=== PATIENT | female | born 1970 | race African-American/Black ===

== ENCOUNTER 2018-01-18 09:35 | Emergency (ER) | payer SELFPAY ==
[2018-01-18] MEDS ORDERED: MORPHINE 4 MG/ML SYR ONE (10:25)
[2018-01-18] MEDS ORDERED: ONDANSETRON 4 MG/2 ML VIAL ONE (10:25)
[2018-01-18] MEDS ORDERED: NA CHLORIDE 0.9% 1,000 ML ONE (10:25)
[2018-01-18 10:55] LABS: Absolute Lymphocytes (CBC) 2.2 K/uL (0.7-4.9); Absolute Monocytes 0.5 K/uL (0.1-1.3); Absolute Neutrophil 2.2 K/uL (1.8-8.0); Eosinophils % 2.9 % (0-4.4); Hematocrit 38.5 % (36.0-45.0); Lymphocytes % 42.4 % (15.3-44.8); MCH 32.4 pg (27.0-35.0); MCV 93.2 fL (80-100); MPV 7.8 fL (7.6-11.3); Monocytes % 10.3 % (3.3-12.3); RBC Red Blood Cell Count 4.13 M/uL (3.86-4.86)
[2018-01-18 11:00] LABS: Urine Bacteria 20-50 /HPF (<20); Urine RBC <5 /HPF (NONE SEEN)
[2018-01-18 11:02] LABS: Urine Culture Reflex Order NOT NEEDED; Urine Mucus HEAVY /HPF (NONE SEEN)
[2018-01-18 11:09] LABS: ALT/SGPT 19 U/L (12-78); AST/SGOT 18 U/L (15-37); Albumin 3.6 g/dL (3.4-5.0); Alkaline Phosphatase 83 U/L (45-117); Amylase Level 32 U/L (25-115); BUN Blood Urea Nitrogen 5 mg/dL (7-18); Bicarbonate 27 mmol/L (21-32); Bilirubin Direct < 0.1 mg/dL (0-0.2); Bilirubin Total 0.3 mg/dL (0.2-1.0); Glucose Level 82 mg/dL (74-106); Lipase 122 U/L (73-393); Potassium 3.5 mmol/L (3.5-5.1); Protein, Total 7.4 g/dL (6.4-8.2); Sodium Level 144 mmol/L (136-145)
--- NOTE | 2018-01-18 11:19 | RAD REPORT ---
EXAM DESCRIPTION: CT - Stone Protocol - 01/18/2018 11:08 am CLINICAL HISTORY: Flank pain. left flank pain COMPARISON: No comparisons TECHNIQUE: Axial images were obtained without oral or IV contrast. Lack of contrast limits solid org an and vascular assessment. The [id number] spans the entirety of the system partially obscuring uppermost abdomen and lung bases. Coronal reformatted images were obtained and reviewed. All CT scans are performed using dose optimization technique as appropriate and may include automated exposure control or mA/KV adjustment according to patient size. FINDINGS: The lower lung sierra are clear. Imaged portions of the liver and spleen show no suspicious findings on non-contrast imaging. The panc reas and adrenal glands are normal. No pathologic lymphadenopathy in the abdomen or pelvis. No urinary tract stones or obstructive uropathy. No bowel obstruction, free air, free fluid or abscess. Normal appendix noted. No significant bony abnormality. IMPRESSION: No urinary tract stones or obstructive uropathy.
--- NOTE | 2018-01-18 11:33 | EDPHYS ---
Physician Documentation [facility] Name: Kelsie Hernandez Age: 47 yrs Sex: Female : 1970 Arrival Date: 01/18/2018 Time: 09:36 Bed 17 Private MD: None, None ED Physician Talat Beth HPI: 01/18 10:13 This 47 yrs old Black Female presents to ER via Ambulatory with complaints of Flank jmm Pain. 10:13 The patient complains of pain in the left flank. The pain radiates to the left upper jmm quadrant and left lower quadrant. Onset: The symptoms/episode began/occurred acutely, 1 day(s) ago. Modifying factors: The symptoms are alleviated by nothing. the symptoms are aggravated by nothing. Associated signs and symptoms: Pertinent negatives: diarrhea, dysuria, fever, nausea, vomiting. This is a 47 year old female with a history of htn that presents to the ED with left flank pain beginning 1 days ago. Denies fever, vomiting, diarrhea. . 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 - Social history:: Smoking status: Patient uses tobacco products, smokes one-half pack cigarettes per day. - Ebola Screening: : Patient negative for fever greater than or equal to 101.5 degrees Fahrenheit, and additional compatible Ebola Virus Disease symptoms. ROS: 10:13 Constitutional: Negative for fever, chills, and weight loss, Cardiovascular: Negative jmm for chest pain, palpitations, and edema, Respiratory: Negative for shortness of breath, cough, wheezing, and pleuritic chest pain. 10:13 : Negative for injury, bleeding, discharge, and swelling, MS/Extremity: Negative for injury and deformity, Skin: Negative for injury, rash, and discoloration, Neuro: Negative for headache, weakness, numbness, tingling, and seizure. 10:13 Abdomen/GI: Positive for abdominal pain. 10:13 Back: Positive for flank pain. 10:13 All other systems are negative. Exam: 10:13 Head/Face: atraumatic. Chest/axilla: Normal chest wall appearance and motion. [facility] Cardiovascular: Regular rate and rhythm. No edema appreciated Respiratory: Normal respirations, no respiratory distress appreciated 10:13 Constitutional: The patient appears in no acute distress, alert, awake. 10:13 Abdomen/GI: Inspection: abdomen appears normal, Bowel sounds: normal, Palpation: soft, in the left upper quadrant and left lower quadrant. 10:13 Skin: Appearance: Color: normal in color, no rash present. 10:13 Neuro: Orientation: is normal, Mentation: is normal, Memory: is normal. 10:13 Psych: Behavior/mood is pleasant, cooperative. Vital Signs: 10:08 BP 148 / 88; Pulse 79; Resp 14; Temp 97.4; Pulse Ox 100% ; Height 5 ft. 3 in. (160.02 sr5 cm); 10:30 BP 123 / 91; Pulse 70; Resp 18; Pulse Ox 100% on R/A; Pain 4/10; em 12:00 BP 121 / 83; Pulse 76; Resp 16; Pulse Ox 100% on R/A; em MDM: 10:09 Patient medically screened. [facility] 10:18 Data reviewed: vital signs, nurses notes. [facility] 11:31 Counseling: I had a detailed discussion with the patient and/or guardian regarding: the [facility] historical points, exam findings, and any diagnostic results supporting the discharge/admit diagnosis, the need for outpatient follow up, to return to the emergency department if symptoms worsen or persist or if there are any questions or concerns that arise at home. 11:31 Counseling: I had a detailed discussion with the patient and/or guardian regarding: lab [facility] results, radiology results. 11:31 Response to treatment: the patient's symptoms have markedly improved after treatment. [facility] ED course: Patient is alert, non toxic i appearance in the ED on discharge. I discussed the need for further evaluation by GI and gave the patient strict return precautions for worsening pain, fever, vomiting, ect, patient understood and agrees with the plan of care. . 01/18 10:10 Order name: Amylase, Serum [facility] 01/18 10:10 Order name: Basic Metabolic Panel [facility] 01/18 10:10 Order name: CBC with Diff; Complete Time: 11:23 [facility] 01/18 10:10 Order name: Creatinine for Radiology; Complete Time: 11:23 [facility] 01/18 10:10 Order name: Hepatic Function; Complete Time: 11:23 [facility] 01/18 10:10 Order name: Lipase; Complete Time: :23 [facility] 01/18 10:10 Order name: Urine Microscopic Only; Complete Time: 11:23 [facility] 01/18 10:10 Order name: CT Stone Protocol; Complete Time: 11:23 [facility] 01/18 10:11 Order name: Amylase Level; Complete Time: 11:23 [facility] 01/18 10:11 Order name: Basic Metabolic Panel; Complete Time: 11:23 [facility] 01/18 11:01 Order name: Urine Dipstick--Ancillary (enter results) 01/18 11:01 Order name: Urine --Ancillary (enter results) 01/18 10:10 Order name: Urine Test (obtain specimen); Complete Time: 11:56 [facility] 01/18 10:10 Order name: IV Saline Lock; Complete Time: 11:56 [facility] 01/18 10:10 Order name: Labs collected and sent; Complete Time: 11:56 [facility] 01/18 10:10 Order name: Urine Dipstick-Ancillary (obtain specimen); Complete Time: 11:56 [facility] Administered Medications: 10:39 Drug: NS 0.9% 1000 ml Route: IV; Rate: 1 bolus; Site: left antecubital; em 11:55 Follow up: IV Status: Order to discontinue infusion; IV Intake: 900ml em 11:56 Not Given (Patient Refused): morphine 4 mg IVP once em 11:56 Not Given (Patient Refused): Zofran 4 mg IVP once; over 2 minutes em Disposition: 14:25 Co-signature as Attending Physician, Talat Beth MD. Co-signature as Attending rn Physician, Talat Beth MD. Disposition: 01/18/18 11:32 Discharged to Home. Impression: Unspecified abdominal pain, Flank Pain, Urinary tract infection, site not specified. - Condition is Stable. - Discharge Instructions: Abdominal Pain, Adult, Flank Pain, Adult, Urinary Tract Infection, Adult. - Prescriptions for omeprazole 40 mg Oral capsule,delayed release(DR/EC) - take 1 capsule by ORAL route once daily before a meal; 14 capsule. Cephalexin 500 mg Oral Capsule - take 1 capsule by ORAL route every 12 hours for 10 days; 20 capsule. Ultracet 37.5- 325 mg Oral Tablet - take 1 tablet by ORAL route every 6 hours - for up to 5 days; do not exceed 8 tablets per day.; 12 tablet. - Medication Reconciliation Form, Thank You Letter, Antibiotic Education, Prescription Opioid Use, Work release form form. - Follow up: Alec Pisano MD; When: As needed; Reason: Recheck today's complaints, Continuance of care, Re-evaluation by your physician. Signatures: Dispatcher [employer] EDMS Ramiro Hernandez PA PA Chad Hendrix, PIPEFITTER WELDER PIPEFITTER WELDER em Talat Beth MD MD rn ReseckDenton green RN RN sr5 Corrections: (The following items were deleted from the chart) 12:01 11:32 01/18/2018 11:32 Discharged to Home. Impression: Unspecified abdominal pain; em Flank Pain; Urinary tract infection, site not specified. Condition is Stable. Forms are Medication Reconciliation Form, Thank You Letter, Antibiotic Education, Prescription Opioid Use. Follow up: Alec Pisano; When: As needed; Reason: Recheck today's complaints, Continuance of care, Re-evaluation by your physician. [facility] 12:10 12:01 01/18/2018 11:32 Discharged to Home. Impression: Unspecified abdominal pain; em Flank Pain; Urinary tract infection, site not specified. Condition is Stable. Discharge Instructions: Abdominal Pain, Adult, Flank Pain, Adult, Urinary Tract Infection, Adult. Prescriptions for omeprazole 40 mg Oral capsule,delayed release(DR/EC) - take 1 capsule by ORAL route once daily before a meal; 14 capsule, Cephalexin 500 mg Oral Capsule - take 1 capsule by ORAL route every 12 hours for 10 days; 20 capsule, Ultracet 37.5-325 mg Oral Tablet - take 1 tablet by ORAL route every 6 hours - for up to 5 days; do not exceed 8 tablets per day.; 12 tablet. and Forms are Medication Reconciliation Form, Thank You Letter, Antibiotic Education, Prescription Opioid Use. Follow up: Alec Pisano; When: As needed; Reason: Recheck today's complaints, Continuance of care, Re-evaluation by your physician. em
--- NOTE | 2018-01-18 11:33 | ER ---
Nurse's Notes [facility] Name: Kelsie Hernandez Age: 47 yrs Sex: Female : 1970 Arrival Date: 01/18/2018 Time: 09:36 Bed 17 Private MD: None, None Diagnosis: Unspecified abdominal pain;Flank Pain;Urinary tract infection, site not specified Presentation: 01/18 10:07 Presenting complaint: Patient states: LEFT flank/LUQ pain, x 2-3 days, sharp pain, sr5 worse when bending over. Denies urinary s/s. Denies fever/vomiting. PMH=HTN Pt is AA\T\Ox4, equal unlabored resp, skin warm/dry/nc, steady gait. Transition of care: patient was not received from another setting of care. Onset of symptoms was January 15, 2018. Risk Assessment: Do you want to hurt yourself or someone else? Patient reports no desire to harm self or others. Initial Sepsis Screen: Does the patient meet any 2 criteria? No. Patient's initial sepsis screen is negative. Does the patient have a suspected source of infection? No. Patient's initial sepsis screen is negative. Care prior to arrival: None. 10:07 Method Of Arrival: Ambulatory sr5 10:07 Acuity: DANG 3 sr5 Triage Assessment: 10:08 General: Appears in no apparent distress. Behavior is calm, cooperative. Pain: sr5 Complains of pain in anterior aspect of left lateral abdomen and left upper quadrant Quality of pain is described as sharp. Neuro: No deficits noted. Cardiovascular: No deficits noted. Respiratory: No deficits noted. GI: Reports flank pain/LUQ pain, denies vomiting. : Reports flank pain, sharp. 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 - Social history:: Smoking status: Patient uses tobacco products, smokes one-half pack cigarettes per day. - Ebola Screening: : Patient negative for fever greater than or equal to 101.5 degrees Fahrenheit, and additional compatible Ebola Virus Disease symptoms. Screenin:57 Abuse screen: Denies threats or abuse. Nutritional screening: No deficits noted. em Tuberculosis screening: No symptoms or risk factors identified. Fall Risk None identified. Assessment: 10:30 General: Appears in no apparent distress. comfortable, Behavior is calm, cooperative. em Pain: Complains of pain in left lower quadrant and left flank and left upper quadrant Pain currently is 4 out of 10 on a pain scale. Quality of pain is described as sharp. Neuro: Level of Consciousness is awake, alert, obeys commands, Oriented to person, place, time, situation. Cardiovascular: Denies chest pain, Capillary refill < 3 seconds Patient's skin is warm and dry. Respiratory: Airway is patent Respiratory effort is even, unlabored, Respiratory pattern is regular, symmetrical. GI: Abdomen is round non-distended, Patient currently denies diarrhea, nausea, vomiting. : Denies burning with urination. EENT: No signs and/or symptoms were reported regarding the EENT system. Derm: Skin is intact, Skin is pink, warm \T\ dry. Musculoskeletal: Range of motion: intact in all extremities. 10:35 Reassessment: Patient appears in no apparent distress at this time. I agree with above iw assessment by Chad Navarro LVN. 10:40 Reassessment: Patient appears in no apparent distress at this time. Patient and/or em family updated on plan of care and expected duration. Pain level reassessed. Patient is alert, oriented x 3, equal unlabored respirations, skin warm/dry/pink. pt refused pain medication states, pain is bearable at 4/10. 12:00 Reassessment: Patient appears in no apparent distress at this time. Patient and/or em family updated on plan of care and expected duration. Pain level reassessed. Patient is alert, oriented x 3, equal unlabored respirations, skin warm/dry/pink. Vital Signs: 10:08 BP 148 / 88; Pulse 79; Resp 14; Temp 97.4; Pulse Ox 100% ; Height 5 ft. 3 in. (160.02 sr5 cm); 10:30 BP 123 / 91; Pulse 70; Resp 18; Pulse Ox 100% on R/A; Pain 4/10; em 12:00 BP 121 / 83; Pulse 76; Resp 16; Pulse Ox 100% on R/A; em ED Course: 09:36 Patient arrived in ED. sb2 09:37 None, None is Private Physician. sb2 10:00 Initial lab(s) drawn, by me, sent to lab. Urine collected: clean catch specimen, clear. em Inserted saline lock: 20 gauge in left antecubital area, using aseptic technique. Blood collected. 10:03 Ramiro Hernandez PA is PHCP. jm 10:03 Talat Beth MD is Attending Physician. [facility] 10:06 Chad Navarro LVN is Primary Nurse. em 10:08 Triage completed. sr5 10:08 Arm band placed on. sr5 10:32 Radiology exam delayed due to test not completed at this time. bq 11:08 CT completed. Patient moved to CT via wheelchair. Patient moved back from CT. cw1 11:09 CT Stone Protocol In Process Unspecified. EDMS 11:32 Alec Pisano MD is Referral Physician. [facility] 11:57 Patient has correct armband on for positive identification. Bed in low position. Call em light in reach. 11:57 No provider procedures requiring assistance completed. IV discontinued, intact, em bleeding controlled, No redness/swelling at site. Pressure dressing applied. Administered Medications: 10:39 Drug: NS 0.9% 1000 ml Route: IV; Rate: 1 bolus; Site: left antecubital; em 11:55 Follow up: IV Status: Order to discontinue infusion; IV Intake: 900ml em 11:56 Not Given (Patient Refused): morphine 4 mg IVP once em 11:56 Not Given (Patient Refused): Zofran 4 mg IVP once; over 2 minutes em Intake: 11:55 IV: 900ml; Total: 900ml. em Outcome: 11:32 Discharge ordered by . [facility] 12:00 Discharged to home ambulatory. em 12:00 Condition: good 12:00 Discharge instructions given to patient, Instructed on discharge instructions, follow up and referral plans. medication usage, Demonstrated understanding of instructions, follow-up care, medications, Prescriptions given X 3. 12:01 Patient left the ED. em 12:10 Patient left the ED. em Signatures: Dispatcher [employer] EDMS Ramiro Hernandez PA PA jmCecilia Miller bq Chad Navarro LVN LVN em Beatriz Glynn RN RN iw Roque, Crystal cw1 Denton Altman, RN RN sr5 Kae Ocampo sb2
[2018-01-18 14:13] LABS: Urine Blood TRACE (NEG); Urine Glucose NEGATIVE (NEG); Urine Protein NEGATIVE (NEG)
== END 2018-01-18 12:10 | disposition home or self-care (01) ==
LOC: ER 09:35
DX: N39.0 Urinary tract infection, site not specified (principal); I10 Essential (primary) hypertension; F17.210 Nicotine dependence, cigarettes, uncomplicated
CPT/HCPCS: 36415; 74176; 76377; 80048; 80076; 81003; 81015; 81025; 82150; 83690; 85025; 96360; 99284; J2405; J7030

== ENCOUNTER 2018-06-21 00:59 | Emergency (ER) | payer SELFPAY ==
[2018-06-21 01:44] LABS: Absolute Lymphocytes (CBC) 2.5 K/uL (0.7-4.9); Absolute Monocytes 0.6 K/uL (0.1-1.3); Absolute Neutrophil 2.8 K/uL (1.8-8.0); Basophils % 1.1 % (0-1.3); Hematocrit 36.7 % (36.0-45.0); Lymphocytes % 40.7 % (15.3-44.8); MPV 8.3 fL (7.6-11.3); Monocytes % 9.6 % (3.3-12.3); RBC Red Blood Cell Count 4.13 M/uL (3.86-4.86)
[2018-06-21 01:47] LABS: Protime INR 0.92
[2018-06-21 02:02] LABS: ALT/SGPT 17 U/L (12-78); AST/SGOT 18 U/L (15-37); Albumin 3.5 g/dL (3.4-5.0); Alkaline Phosphatase 91 U/L (45-117); BUN Blood Urea Nitrogen 9 mg/dL (7-18); Bicarbonate 28 mmol/L (21-32); Bilirubin Direct < 0.1 mg/dL (0-0.2); Bilirubin Total 0.1 mg/dL (0.2-1.0); Glucose Level 97 mg/dL (74-106); Magnesium 2.1 mg/dL (1.8-2.4); NT PRO-BNP 16 pg/mL (<125); Potassium 3.7 mmol/L (3.5-5.1); Protein, Total 6.9 g/dL (6.4-8.2); Sodium Level 146 mmol/L (136-145); Troponin (Emerg Dept Use Only) < 0.02 ng/mL (0.0-0.045)
--- NOTE | 2018-06-21 06:33 | ER ---
Nurse's Notes [facility] Name: Kelsie Hernandez Age: 48 yrs Sex: Female : 1970 Arrival Date: 06/21/2018 Time: 01:01 Bed 13 Private MD: Diagnosis: Internal derangement of knee;Syncope and collapse;Mandible Contusion Presentation: 06/21 01:01 Presenting complaint: EMS states: Pt was walking back from the bathroom and had a tl2 syncopal episode. Reports back pain and knee pain. Is AOx4 at this time, denies dizziness or headache. Transition of care: patient was not received from another setting of care. Onset of symptoms was June 21, 2018 at 00:30. Risk Assessment: Do you want to hurt yourself or someone else? Patient reports no desire to harm self or others. Initial Sepsis Screen: Does the patient meet any 2 criteria? No. Patient's initial sepsis screen is negative. Does the patient have a suspected source of infection? No. Patient's initial sepsis screen is negative. Care prior to arrival: None. 01:01 Method Of Arrival: EMS: [facility] tl2 01:01 Acuity: DANG 3 tl2 Triage Assessment: 01:03 General: Appears in no apparent distress. comfortable, Behavior is calm, cooperative, tl2 appropriate for age. Pain: Complains of pain in back pain, knee pain. Neuro: Level of Consciousness is awake, alert, obeys commands, Oriented to person, place, time, situation, Reports a syncopal episode Denies weakness dizziness, headache. Cardiovascular: Denies chest pain. Respiratory: Airway is patent Respiratory effort is even, unlabored, Respiratory pattern is regular, symmetrical. GI: No signs and/or symptoms were reported involving the gastrointestinal system. Derm: Skin is pink, warm \T\ dry. Historical: - Allergies: 01:03 No Known Allergies; tl2 - Home Meds: 01:03 HTN med, unsure of name [Active]; tl2 - PMHx: 01:03 Hypertension; seasonal allergies; tl2 - Immunization history:: Adult Immunizations up to date. - Social history:: Smoking status: Patient uses tobacco products, smokes one-half pack cigarettes per day. - Ebola Screening: : No symptoms or risks identified at this time. Screenin:05 Abuse screen: Denies threats or abuse. Nutritional screening: No deficits noted. tl2 Tuberculosis screening: No symptoms or risk factors identified. Fall Risk None identified. Assessment: 01:03 General: see triage assessment. tl2 02:01 Cardiovascular: Rhythm is sinus rhythm. tl2 02:29 Reassessment: Patient appears in no apparent distress at this time. Patient and/or tl2 family updated on plan of care and expected duration. Pain level reassessed. Patient is alert, oriented x 3, equal unlabored respirations, skin warm/dry/pink. 05:03 Reassessment: Patient appears in no apparent distress at this time. Patient and/or tl2 family updated on plan of care and expected duration. Pain level reassessed. Patient is alert, oriented x 3, equal unlabored respirations, skin warm/dry/pink. awaiting CT results, currently resolving issues with CT reading system. 06:30 Reassessment: Patient and/or family updated on plan of care and expected duration. Pain ea level reassessed. Patient is alert, oriented x 3, equal unlabored respirations, skin warm/dry/pink. Discharge instructions given to patient, verbalized the understanding of instruction. Vital Signs: 01:03 BP 125 / 76; Pulse 78; Resp 18; Temp 98.1(O); Pulse Ox 100% on R/A; Weight 104.33 kg; tl2 Height 5 ft. 3 in. (160.02 cm); Pain 2/10; 02:29 BP 114 / 73; Pulse 72; Resp 18; Pulse Ox 100% on R/A; tl2 04:13 BP 110 / 70; Pulse 82; Resp 18; Pulse Ox 100% on R/A; tl2 05:57 BP 115 / 70; Pulse 63; Resp 18; Pulse Ox 100% on R/A; ea 01:03 Body Mass Index 40.74 (104.33 kg, 160.02 cm) tl2 ED Course: 01:01 Patient arrived in ED. tl2 01:03 Triage completed. tl2 01:03 Arm band placed on right wrist. tl2 01:05 Patient has correct armband on for positive identification. Bed in low position. Call tl2 light in reach. Side rails up X 1. Adult w/ patient. 01:08 [facility] 01:08 Alec Sow MD is Attending Physician. [facility] 01:25 Leigh Ann Burnett, RN is Primary Nurse. tl2 01:36 Inserted saline lock: 22 gauge in left antecubital area, using aseptic technique. Blood tl2 collected. 01:37 X-ray completed. Portable x-ray completed in exam room. Patient tolerated procedure sg4 well. 01:39 XRAY Chest (1 view) In Process Unspecified. EDMS 01:50 Knee Left 3 View XRAY In Process Unspecified. EDMS 02:02 EKG done. tl2 02:[address] via wheelchair. kw1 02:48 CT completed. Patient tolerated procedure well. Patient moved back from CT. kw1 02:50 CT completed. Patient tolerated procedure well. Patient moved back from CT. kw1 03:03 CT Head C Spine In Process Unspecified. EDMS 03:04 CT Facial Bones W/O Con In Process Unspecified. EDMS 06:30 IV discontinued, intact, bleeding controlled, No redness/swelling at site. Pressure ea dressing applied. 06:31 No provider procedures requiring assistance completed. ea Administered Medications: No medications were administered Outcome: 06:31 Discharged to home ambulatory, with significant other. ea 06:31 Condition: improved 06:31 Discharge instructions given to patient, family, Instructed on discharge instructions, follow up and referral plans. medication usage, Demonstrated understanding of instructions, follow-up care, medications. 06:32 Discharge ordered by . ea 06:32 Patient left the ED. ea Signatures: Dispatcher [employer] EDRI Ramiro Hernandez PA PA jmm Knox, Taylor, RN RN tl2 Mary Beth Cobos RN RN ea Wilhelm, Kimberly kw1 Li Lizama sg4
--- NOTE | 2018-06-21 06:33 | EDPHYS ---
Physician Documentation [facility] Name: Kelsie Hernandez Age: 48 yrs Sex: Female : 1970 Arrival Date: 06/21/2018 Time: 01:01 Bed 13 Private MD: ED Physician Alec Sow HPI: 06/21 01:19 This 48 yrs old Black Female presents to ER via EMS with complaints of Syncope. [facility] 01:19 The patient has experienced syncope. Onset: The symptoms/episode began/occurred jmm acutely, just prior to arrival. Duration: This was a single episode. Associated injury: Other:. Associated signs and symptoms: Pertinent negatives: chest pain, shortness of breath. This is a 48 year old female with a history of htn that presents to the ED after a syncopal episode which occurred just prior to arrival. Patient states going to the bathroom and then lost consciousness and fell after getting up from the toilet. Patient states she took a bowel movement. Patient denies chest pain, shortness of breath. patient complains of pain to her left knee and her chin. . Historical: - Allergies: 01:03 No Known Allergies; tl2 - Home Meds: 01:03 HTN med, unsure of name [Active]; tl2 - PMHx: 01:03 Hypertension; seasonal allergies; tl2 - Immunization history:: Adult Immunizations up to date. - Social history:: Smoking status: Patient uses tobacco products, smokes one-half pack cigarettes per day. - Ebola Screening: : No symptoms or risks identified at this time. ROS: 01:19 Constitutional: Negative for fever, chills, and weight loss, Eyes: Negative for injury, jmm pain, redness, and discharge, Cardiovascular: Negative for chest pain, palpitations, and edema, Respiratory: Negative for shortness of breath, cough, wheezing, and pleuritic chest pain. 01:19 Neuro: Positive for syncope. 01:19 All other systems are negative. Exam: 01:19 Constitutional: This is a well developed, well nourished patient who is awake, alert, jmm and in no acute distress. 01:19 Eyes: EOMI, no conjunctival erythema appreciated ENT: Moist Mucus Membranes Neck: Trachea midline, Supple Chest/axilla: Normal chest wall appearance and motion. 01:19 Back: Normal ROM Skin: General appearance color normal MS/ Extremity: Moves all extremities, no obvious deformities appreciated, no edema noted to the lower extremities Neuro: Awake and alert, normal gait Psych: Behavior is normal, Mood is normal, Patient is cooperative and pleasant 01:19 Head/face: left mandibular pain on palpation, no obvious facial deformity is appreciated. 01:19 Cardiovascular: Rate: normal, Rhythm: regular, Pulses: no pulse deficits are appreciated. 01:19 Respiratory: the patient does not display signs of respiratory distress, Respirations: normal, Breath sounds: are clear throughout. Vital Signs: 01:03 BP 125 / 76; Pulse 78; Resp 18; Temp 98.1(O); Pulse Ox 100% on R/A; Weight 104.33 kg; tl2 Height 5 ft. 3 in. (160.02 cm); Pain 2/10; 02:29 BP 114 / 73; Pulse 72; Resp 18; Pulse Ox 100% on R/A; tl2 04:13 BP 110 / 70; Pulse 82; Resp 18; Pulse Ox 100% on R/A; tl2 05:57 BP 115 / 70; Pulse 63; Resp 18; Pulse Ox 100% on R/A; ea 01:03 Body Mass Index 40.74 (104.33 kg, 160.02 cm) tl2 MDM: 01:19 Patient medically screened. [facility] 03:15 Data reviewed: vital signs, nurses notes, lab test result(s), radiologic studies, plain [facility] films. Counseling: I had a detailed discussion with the patient and/or guardian regarding: the historical points, exam findings, and any diagnostic results supporting the discharge/admit diagnosis, lab results, radiology results, the need for outpatient follow up, to return to the emergency department if symptoms worsen or persist or if there are any questions or concerns that arise at home. ED course: Low risk according to [place] Syncope Rules. 03:21 ECG was reviewed by the Attending Physician. Transition of care: After a detail [facility] discussion of the patient's case, care is transferred to Alec Sow MD. 06/21 01:19 Order name: Basic Metabolic Panel; Complete Time: 02:06 [facility] 06/21 01:19 Order name: CBC with Diff; Complete Time: 01:46 [facility] 06/21 01:19 Order name: LFT's; Complete Time: 02:06 [facility] 06/21 01:19 Order name: Magnesium; Complete Time: 02:06 [facility] 06/21 01:19 Order name: NT PRO-BNP; Complete Time: 02:06 [facility] 06/21 01:19 Order name: PT-INR; Complete Time: 01:52 [facility] 06/21 01:19 Order name: Troponin (emerg Dept Use Only); Complete Time: 02:06 [facility] 06/21 01:19 Order name: XRAY Chest (1 view) [facility] 06/21 01:19 Order name: EKG; Complete Time: 01:21 [facility] 06/21 01:19 Order name: Cardiac monitoring; Complete Time: 01:35 [facility] 06/21 01:20 Order name: Type And Screen; Complete Time: 02:47 [facility] 06/21 01:35 Order name: CT Head C Spine [facility] 06/21 01:35 Order name: CT Facial Bones W/O Con [facility] 06/21 01:35 Order name: Knee Left 3 View XRAY [facility] 06/21 01:19 Order name: EKG - Nurse/Tech; Complete Time: 02:01 [facility] 06/21 01:19 Order name: IV Saline Lock; Complete Time: 01:35 [facility] 06/21 01:20 Order name: Labs collected and sent; Complete Time: 01:35 [facility] 06/21 01:20 Order name: O2 Per Protocol; Complete Time: 01:35 [facility] 06/21 01:20 Order name: O2 Sat Monitoring; Complete Time: 01:35 [facility] 06/21 01:41 Order name: Gown patient; Complete Time: 02:00 jm Administered Medications: No medications were administered Disposition: 06/21/18 06:32 Discharged to Home. Impression: Internal derangement of knee, Syncope and collapse, Mandible Contusion. - Condition is Stable. - Discharge Instructions: Jaw Contusion, Syncope, Knee Pain. - Prescriptions for Ibuprofen 800 mg Oral Tablet - take 1 tablet by ORAL route every 8 hours As needed take with food; 30 tablet. - Work release form, Medication Reconciliation Form, Thank You Letter, Antibiotic Education, Prescription Opioid Use form. - Follow up: Private Physician; When: 2 - 3 days; Reason: Recheck today's complaints, Continuance of care, Re-evaluation by your physician. Addendum: 06/23/2018 07:42 Co-signature as Attending Physician, Alec GODOY I agree with the assessment and w a plan of care. Signatures: Dispatcher [employer] Ramiro Alan PA PA jmm Knox, Taylor RN RN tl2 Mary Beth Cobos RN RN ea Alec Sow MD MD wa
--- NOTE | 2018-06-21 06:33 | EKG ---
Test Date: 2018-06-21 Test Time: 01:56:17 Vocational Coordinator: IDALIA MEASUREMENT RESULTS: Intervals: Rate: 75 WI: 144 QRSD: 74 QT: 392 QTc: 437 [facility]: P: 59 WI: 144 QRS: 14 T: -3 INTERPRETIVE STATEMENTS: Normal sinus rhythm Possible Left atrial enlargement Borderline ECG Compared to ECG 10/26/2016 06:43:24 No significant changes Electronically Signed On 06-21-18 06:24:16 ACCESS RN by Saul rGay
--- NOTE | 2018-06-21 09:26 | RAD REPORT ---
EXAM DESCRIPTION: [place] Single View06/21/2018 1:38 am CLINICAL HISTORY: Chest pain COMPARISON: 2017 FINDINGS: The lungs appear clear of acute infiltrate. The heart is normal size IMPRESSION: No acute abnormalities displayed
--- NOTE | 2018-06-21 09:28 | RAD REPORT ---
EXAM DESCRIPTION: RAD - Knee Left 3 View - 06/21/2018 1:50 am CLINICAL HISTORY: Left knee pain FINDINGS: No fracture or dislocation is seen. Minimal osteoarthritis involves the medial compartment
--- NOTE | 2018-06-21 12:44 | RAD REPORT ---
EXAM DESCRIPTION: CT - Facial Bones W/ Mpr - 06/21/2018 4:55 am CLINICAL HISTORY: 48-year-old female status post fall with head injury and jaw pain. TECHNIQUE: Axial CT of the facial bones was performed without intravenous contrast with sagittal and coronal reformatted images. The CT study is performed according to ALARA (as low as reasonably achie vable) or ALARA/IMAGE GENTLY, with automatic adjustment of mA and/or kV according to patient size. COMPARISON: None. FINDINGS: There is no evidence of acute facial bone fracture. The mandible is intact. The temporoman dibular joints are preserved. There may be a cavity involving the posterior left maxillary molar. Both globes are intact and are symmetric. The extraocular muscles and optic nerves are symmetric. The intraconal fat is preserved. There is no evidence of intraorbital emphysema. There is no significant mucosal thickening of the paranasal sinuses. The nasal bones are intact. The bony nasal septum slightly deviated towards the left. The anterior ma xillary spine is intact. The ostiomeatal units are patent. There are bilateral middle turbinate conch al bullosa. Mastoid air cells and middle ear cavities are clear. There is no significant soft tissue swelling identified. IMPRESSION: 1. No evidence of acute facial bone pathology. 2. Possible cavity involving the posterior left maxillary molar. Electronically signed by: Gavi Juarez DO 06/21/2018 4:49 AM NUTRITIONAL HEALTH COACH Due to temporary technical issues with the PACS/Fluency reporting system, reports are being signed by the in house radiologist as a courtesy to ensure prompt reporting. The interpreting radiologist is f ully responsible for the content of the report.
--- NOTE | 2018-06-23 11:47 | RAD REPORT ---
EXAM DESCRIPTION: CT - Head C Spine Mpr Wo Con - 06/21/2018 4:55 am CLINICAL HISTORY: CT head without IV contrast. TECHNIQUE: Multiple axial CT images of the brain were performed following by sagittal and coronal re constructed images. The CT study is performed according to ALARA (as low as reasonably achievable) or ALARA/IMAGE GENTLY, with automatic adjustment of mA and/or kV according to patient size. Performed on 06/21/2018 at 2:19 AM COMPARISON: Syncope, head injury FINDINGS: There is no evidence of mass, acute mass effect or midline shift. There are no acute extra -axial fluid collections. There is no evidence of acute intracranial hemorrhage. The cerebral sulci and ventricles are normal in size and configuration. There are no focal abnormal areas of increased or decreased attenuation. There is no significant mucosal thickening of the paranasal sinuses. The mastoid air cells are clear. The orbital contents are grossly unremarkable. No acute osseous abnormalities are identified. No focal soft tissue abnormalities are identified. IMPRESSION: There is no evidence of acute intracranial pathology. EXAM: CT cervical spine without contrast CLINICAL DATE: 48-year-old female status post syncopal episode with head and neck injury. TECHNICAL DATA: Multiple high- resolution thin axial CT images were performed through the cervical spine followed by sagittal and coronal reconstructed images. The CT study is performed according to ALARA (as low as re asonably achievable) or ALARA/IMAGE GENTLY, with automatic adjustment of mA and/or kV according to pa tient size. Performed on 06/21/2018 at 2:19 AM COMPARISONS: None FINDINGS: The cervical vertebrae are normal in height. There is straightening of the normal cervical lordosis. The disc spaces are well preserved in height. Bone mineralization is normal. The atlanto-axial articu lation is preserved and the odontoid process is intact. There is normal alignment of the facet joints on the parasagittal images. There are no significant de generative changes of the cervical spine. There is no evidence of acute fracture or subluxation. There is no significant canal stenosis. There is no significant neural foraminal stenosis. The paravertebral and paraspinal soft tissues are unrema rkable. The lung apices are clear. IMPRESSION: 1. No evidence of acute osseous injury involving the cervical spine. 2. Straightening of the normal cervical lordosis. Electronically signed by: Gavi Juarez DO 06/21/2018 4:41 AM OPERATOR [employer] Due to temporary technical issues with the PACS/Fluency reporting system, reports are being signed by the in house radiologist as a courtesy to ensure prompt reporting. The interpreting radiologist is f ully responsible for the content of the report.
== END 2018-06-21 06:32 | disposition home or self-care (01) ==
LOC: ER 00:59
DX: M23.92 Unspecified internal derangement of left knee (principal); S00.83XA Contusion of other part of head, initial encounter; W18.11XA Fall from or off toilet without subsequent striking against object, initial encounter; Y93.89 Activity, other specified; Y92.002 Bathroom of unspecified non-institutional (private) residence as the place of occurrence of the external cause; I10 Essential (primary) hypertension; F17.210 Nicotine dependence, cigarettes, uncomplicated
CPT/HCPCS: 36415; 70450; 70486; 71045; 72125; 76377; 80048; 80076; 83735; 83880; 84484; 85025; 85610; 86850; 86900; 86901; 93005; 99285

== ENCOUNTER 2019-07-04 07:49 | Emergency (ER) | payer BC, SELFPAY ==
[2019-07-04 08:28] LABS: Absolute Lymphocytes (CBC) 1.7 K/uL (0.7-4.9); Hematocrit 36.6 % (36.0-45.0); MPV 7.5 fL (7.6-11.3); RBC Red Blood Cell Count 4.39 M/uL (3.86-4.86)
[2019-07-04 08:48] LABS: ALT/SGPT 23 U/L (12-78); AST/SGOT 23 U/L (15-37); Alkaline Phosphatase 83 U/L (45-117); BUN Blood Urea Nitrogen 12 mg/dL (7-18); Bicarbonate 25 mmol/L (21-32); Bilirubin Direct 0.1 mg/dL (0-0.2); Bilirubin Total 0.3 mg/dL (0.2-1.0); Glucose Level 79 mg/dL (74-106); Lipase 93 U/L (73-393); NT PRO-BNP 48 pg/mL (<125); Potassium 3.8 mmol/L (3.5-5.1); Protein, Total 7.8 g/dL (6.4-8.2); Sodium Level 140 mmol/L (136-145); Troponin (Emerg Dept Use Only) < 0.02 ng/mL (0.0-0.045)
--- NOTE | 2019-07-04 08:52 | RAD REPORT ---
EXAM DESCRIPTION: RAD - Chest Single View - 07/04/2019 8:25 am CLINICAL HISTORY: CHEST PAIN COMPARISON: Chest Single View dated 06/21/2018 TECHNIQUE: AP portable chest image was obtained 07/04/2019 8:25 am . FINDINGS: Lung volumes are reduced compared to prior imaging. Lung sierra are clear. The retrocardia c left base assessment is limited by shallow inspiration, under penetrated portable technique and pro minent overlying soft tissues. A minimal left base infiltrate is not excluded but needs correlation w ith exam findings. Heart and vasculature are normal. No measurable pleural effusion and no pneumothorax. No acute bony abnormality seen. No acute aortic findings suspected. IMPRESSION: No acute cardiopulmonary process suspected. Exam limitations detailed above limit the assessment of the retrocardiac left base.
--- NOTE | 2019-07-04 10:21 | ER ---
Nurse's Notes [facility] Name: Kelsie Hernandez Age: 49 yrs Sex: Female : 1970 Arrival Date: 07/04/2019 Time: 07:50 Bed 5 Private MD: Diagnosis: Chest pain, unspecified Presentation: 07/04 08:04 Presenting complaint: Patient states: c/o midsternal chest pain that started when she iw woke up this morning at 0445, pain started in back and radiates to chest, denies n/v, denies cough or abd pain, denies cardiac hx , pain aggravated by movement. Transition of care: patient was not received from another setting of care. Onset of symptoms was July 04, 2019. Risk Assessment: Do you want to hurt yourself or someone else? Patient reports no desire to harm self or others. Initial Sepsis Screen: Does the patient meet any 2 criteria? No. Patient's initial sepsis screen is negative. Does the patient have a suspected source of infection? No. Patient's initial sepsis screen is negative. Care prior to arrival: None. 08:04 Method Of Arrival: Ambulatory iw 08:04 Acuity: DANG 3 iw Triage Assessment: 08:05 General: Appears in no apparent distress. comfortable, Behavior is cooperative, bp appropriate for age, anxious. Pain: Complains of pain in chest. EENT: No deficits noted. Neuro: No deficits noted. Cardiovascular: Rhythm is sinus rhythm. Respiratory: No deficits noted. GI: No signs and/or symptoms were reported involving the gastrointestinal system. : No signs and/or symptoms were reported regarding the genitourinary system. Derm: No deficits noted. Musculoskeletal: No deficits noted. CROCHETER: 08:06 LMP 06/22/2019 iw Historical: - Allergies: 08:06 No Known Allergies; iw - PMHx: 08:06 Hypertension; seasonal allergies; iw - PSHx: 08:06 Tubal ligation; iw - Immunization history:: Adult Immunizations not up to date. - Coronavirus screen:: The patient has NOT traveled to [place] in the past 14 days. Proceed with normal triage process as indicated. - Family history:: not pertinent. - Social history:: Smoking status: Patient reports the use of cigarette tobacco products, smokes one pack cigarettes per day. - Hospitalizations: : No recent hospitalization is reported. - Ebola Screening: : Patient negative for fever greater than or equal to 101.5 degrees Fahrenheit, and additional compatible Ebola Virus Disease symptoms Patient denies exposure to infectious person Patient denies travel to an Ebola-affected area in the 21 days before illness onset No symptoms or risks identified at this time. Screenin:20 Abuse screen: Denies threats or abuse. Denies injuries from another. Nutritional bp screening: No deficits noted. Tuberculosis screening: No symptoms or risk factors identified. Fall Risk None identified. Assessment: 08:23 General: SEE TRIAGE NOTE. bp 08:30 Pain: Pain radiates to back Pain began 3 hours ago. bp 09:29 Reassessment: second troponin collected and sent at this time. ah 10:11 Reassessment: SECOND CARDIAC INDICES UNREMARKABLE. VS STABLE ON MONITOR. MD NOTIFIED, bp DISPO PENDING. 10:38 Reassessment: PT D/C HOME AMBULATORY WITH FAMILY, DX WITH NONSPECIFIC CHEST PAIN. bp Vital Signs: 08:06 BP 146 / 98; Pulse 88; Resp 16; Temp 98.1; Pulse Ox 99% on R/A; Weight 97.98 kg; Height iw 5 ft. 3 in. (160.02 cm); Pain 6/10; 09:00 BP 112 / 73; Pulse 77; Resp 17; Pulse Ox 99% ; ah 10:00 BP 103 / 69; Pulse 82; Resp 23; Pulse Ox 100% ; bp 08:06 Body Mass Index 38.26 (97.98 kg, 160.02 cm) iw ED Course: 07:50 Patient arrived in ED. as 07:51 Talat Beth MD is Attending Physician. rn 07:52 Kody Allen, FABIAN is Primary Nurse. bp 08:05 Triage completed. iw 08:06 Arm band placed on. iw 08:09 EKG done, by ED staff, reviewed by Talat Beth MD. jb1 08:20 Patient has correct armband on for positive identification. Bed in low position. Call bp light in reach. Side rails up X2. lease purchase driver on. Pulse ox on. NIBP on. 08:20 Inserted saline lock: 20 gauge in right antecubital area, using aseptic technique. bp Blood collected. 09:01 ED physician to see patient. ah 10:10 Troponin (emerg Dept Use Only) Sent. bp 10:19 Zachery Weller MD is Referral Physician. rn 10:39 No provider procedures requiring assistance completed. IV discontinued, intact, bp bleeding controlled, No redness/swelling at site. Pressure dressing applied. Patient maintains SpO2 saturation greater than 95% on room air. Administered Medications: No medications were administered Outcome: 10:19 Discharge ordered by . rn 10:39 Discharged to home ambulatory, with family. bp 10:39 Condition: stable 10:39 Discharge instructions given to patient, Instructed on discharge instructions, follow up and referral plans. Demonstrated understanding of instructions, follow-up care. 10:39 Patient left the ED. bp Signatures: Tylor Chao jb1 Jessica Navarro Irene, RN RN iw Talat Beth MD MD rn Peltier, Brian, RN RN bp Harris, Amy, RN RN
--- NOTE | 2019-07-04 10:22 | EDPHYS ---
Physician Documentation [facility] Name: Kelsie Hernandez Age: 49 yrs Sex: Female : 1970 Arrival Date: 07/04/2019 Time: 07:50 Bed 5 Private MD: ED Physician Talat Beth HPI: 07/04 08:00 This 49 yrs old Black Female presents to ER via Unassigned with complaints of Chest rn Pain. 08:00 The patient or guardian reports chest pain that is located primarily in the substernal rn area. Onset: 3 hour(s) ago. The pain does not radiate. Associated signs and symptoms: Pertinent negatives: abdominal pain, cough, lightheadedness, palpitations, shortness of breath, syncope, vomiting. The chest pain is described as stabbing. Duration: The patient or guardian reports a single episode, that is still ongoing. Modifying factors: The symptoms are alleviated by nothing. the symptoms are aggravated by movement, palpation of area. Severity of pain: At its worst the pain was mild in the emergency department the pain has improved. The patient has not experienced similar symptoms in the past. Reports woke up this morning with mild chest pain, stabbing/pulsing, still ongoing, states worse with picking things up and palpation, + smoker, no new cough, no fever, no trauma, no abd pain/vomiting/diaphoresis. 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 No famhx of cardiac problems at her age. Reports getting better slowly since onset. . 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 - Coronavirus screen:: The patient has NOT traveled to [place] in the past 14 days. Proceed with normal triage process as indicated. - Family history:: not pertinent. - Social history:: Smoking status: Patient reports the use of cigarette tobacco products, smokes one pack cigarettes per day. - Hospitalizations: : No recent hospitalization is reported. - Ebola Screening: : Patient negative for fever greater than or equal to 101.5 degrees Fahrenheit, and additional compatible Ebola Virus Disease symptoms Patient denies exposure to infectious person Patient denies travel to an Ebola-affected area in the 21 days before illness onset No symptoms or risks identified at this time. ROS: 08:00 Constitutional: Negative for fever, chills, and weight loss, Eyes: Negative for injury, rn pain, redness, and discharge, Neck: Negative for injury, pain, and swelling, Cardiovascular: Negative for palpitations, and edema, Respiratory: Negative for shortness of breath, cough, wheezing, and pleuritic chest pain, Abdomen/GI: Negative for abdominal pain, nausea, vomiting, diarrhea, and constipation, : Negative for injury, bleeding, discharge, and swelling, MS/Extremity: Negative for injury and deformity, Skin: Negative for injury, rash, and discoloration, Neuro: Negative for headache, weakness, numbness, tingling, and seizure. Exam: 08:00 Constitutional: This is a well developed, well nourished patient who is awake, alert, cadmium burner to room without difficulty. Head/Face: Normocephalic, atraumatic. Eyes: Pupils equal round and reactive to light, extra-ocular motions intact. Lids and lashes normal. Conjunctiva and sclera are non-icteric and not injected. Cornea within normal limits. Periorbital areas with no swelling, redness, or edema. Chest/axilla: Normal chest wall appearance and motion. + reproducible sternal chest tenderness. No crepitus. Cardiovascular: Regular rate and rhythm. No pulse deficits. Respiratory: Lungs have equal breath sounds bilaterally, clear to auscultation. No increased work of breathing, no retractions or nasal flaring. Abdomen/GI: soft, non-tender MS/ Extremity: Pulses equal, no cyanosis. Neurovascular intact. Full, normal range of motion. Equal circumference. Neuro: Awake and alert, GCS 15, oriented to person, place, time, and situation. Cranial nerves II-XII grossly intact. Motor strength 5/5 in all extremities. Sensory grossly intact. Cerebellar exam normal. Normal gait. 08:19 ECG was reviewed by the Attending Physician. rn Vital Signs: 08:06 BP 146 / 98; Pulse 88; Resp 16; Temp 98.1; Pulse Ox 99% on R/A; Weight 97.98 kg; Height iw 5 ft. 3 in. (160.02 cm); Pain 6/10; 09:00 BP 112 / 73; Pulse 77; Resp 17; Pulse Ox 99% ; ah 10:00 BP 103 / 69; Pulse 82; Resp 23; Pulse Ox 100% ; bp 08:06 Body Mass Index 38.26 (97.98 kg, 160.02 cm) iw MDM: 07:52 Patient medically screened. rn 09:09 ED course: Repeat ECG without ischemia, no changes. rn 09:35 Differential diagnosis: acute myocardial infarction, acute pericarditis, coronary rn artery disease chest wall pain, costochondritis, gastroesophageal reflux disease (GERD), pericarditis, pleurisy, pneumothorax, stable angina. Data reviewed: vital signs, nurses notes, lab test result(s), EKG, radiologic studies, plain films, and as a result, I will discharge patient. Counseling: I had a detailed discussion with the patient and/or guardian regarding: the historical points, exam findings, and any diagnostic results supporting the discharge/admit diagnosis, lab results, radiology results, the need for outpatient follow up, to return to the emergency department if symptoms worsen or persist or if there are any questions or concerns that arise at home. Special discussion: Based on the patient's history, exam, and Dx evaluation, there is no indication for emergent intervention or inpatient Tx. It is understood by the patient/guardian that if the Sx's persist or worsen they need to return immediately for re-evaluation. I discussed with the patient/guardian in detail that at this point there is no indication for admission to the hospital. It is understood, however, that if the symptoms persist or worsen the patient needs to return immediately for re-evaluation. Based on the history and exam findings, there is no indication for further emergent testing or inpatient evaluation. I discussed with the patient/guardian the need to see the permit agent for further evaluation of the symptoms. ED course: Recommend outpt stress test given smoking history along with HTN and HLD. Will dc home if repeat trop negative. . 07/04 08:00 Order name: Basic Metabolic Panel rn 07/04 08:00 Order name: CBC with Diff rn 07/04 08:00 Order name: LFT's rn 07/04 08:00 Order name: NT PRO-BNP rn 07/04 08:00 Order name: Troponin (emerg Dept Use Only) rn 07/04 08:00 Order name: Lipase rn 07/04 08:32 Order name: CBC with Automated Diff; Complete Time: 08:43 EDMS 07/04 08:48 Order name: Basic Metabolic Panel; Complete Time: 08:59 EDMS 07/04 08:48 Order name: Liver (Hepatic) Function; Complete Time: 08:59 EDMS 07/04 08:48 Order name: Troponin (Emerg Dept Use Only); Complete Time: 08:59 EDMS 07/04 08:48 Order name: NT PRO-BNP; Complete Time: 08:59 EDMS 07/04 08:48 Order name: Lipase; Complete Time: 08:59 EDMS 07/04 09:09 Order name: Troponin (emerg Dept Use Only) rn 07/04 10:07 Order name: Troponin (Emerg Dept Use Only); Complete Time: 10:19 EDMS 07/04 08:00 Order name: XRAY Chest (1 view) rn 07/04 08:00 Order name: EKG; Complete Time: 08:02 rn 07/04 08:00 Order name: Cardiac monitoring; Complete Time: 08:08 rn 07/04 08:00 Order name: EKG - Nurse/Tech; Complete Time: 08:08 rn 07/04 08:00 Order name: IV Saline Lock; Complete Time: 08:24 rn 07/04 08:00 Order name: Labs collected and sent; Complete Time: 08:24 rn 07/04 08:00 Order name: O2 Per Protocol; Complete Time: 08:08 rn 07/04 08:00 Order name: O2 Sat Monitoring; Complete Time: 08:08 rn 07/04 08:53 Order name: RAD; Complete Time: 08:59 EDMS EC:19 Rate is 79 beats/min. Rhythm is regular. QRS [place] is Normal. VT interval is normal. QRS rn interval is normal. QT interval is normal. No Q waves. T waves are Normal. No ST changes noted. Clinical impression: Normal ECG. Interpreted by me. Reviewed by me. Administered Medications: No medications were administered Disposition: 07/04/19 10:19 Discharged to Home. Impression: Chest pain, unspecified. - Condition is Stable. - Discharge Instructions: Nonspecific Chest Pain, Pain Without a Known Cause, Steps to Quit Smoking. - Work release form, Medication Reconciliation Form, Thank You Letter, Antibiotic Education, Prescription Opioid Use form. - Follow up: Zachery Weller; When: As needed; Reason: Recheck today's complaints, Re-evaluation by your physician. - Problem is new. - Symptoms have improved. Signatures: Dispatcher [employer] EDBeatriz Arenas, RN Talat Wooten MD MD rn Peltier, Brian, RN RN bp Corrections: (The following items were deleted from the chart) 08:03 08:00 Reports woke up this morning with mild chest pain, stabbing/pulsing, still rn ongoing, states worse with picking things up and palpation, + smoker, no new cough, no fever, no trauma, no abd pain/vomiting/diaphoresis. 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 No famhx of cardiac problems at her age. . rn 10:39 10:19 07/04/2019 10:19 Discharged to Home. Impression: Chest pain, unspecified. bp Condition is Stable. Discharge Instructions: Nonspecific Chest Pain, Pain Without a Known Cause, Steps to Quit Smoking. Forms are Medication Reconciliation Form, Thank You Letter, Antibiotic Education, Prescription Opioid Use. Follow up: Zachery Weller; When: As needed; Reason: Recheck today's complaints, Re-evaluation by your physician. Problem is new. Symptoms have improved. rn
[2019-07-04 10:48] VITALS: TEMP 98.1
[2019-07-04 10:51] VITALS: BP 103/69; O2SAT 100
--- NOTE | 2019-07-05 07:47 | EKG ---
Test Date: 2019-07-04 Test Time: 08:04:44 Storage Wharfage Clerk: WILBERT MEASUREMENT RESULTS: Intervals: Rate: 79 FL: 146 QRSD: 78 QT: 364 QTc: 417 [place]: P: 55 FL: 146 QRS: 23 T: 12 INTERPRETIVE STATEMENTS: Normal sinus rhythm Normal ECG Compared to ECG 06/21/2018 01:56:17 No significant changes Electronically Signed On 07-05-19 07:44:59 ELECTRICAL EQUIPMENT TECHNICIAN by Zachery Weller
--- NOTE | 2019-07-06 08:56 | EKG ---
Test Date: 2019-07-04 Test Time: 09:04:41 Shuttle Spotter: WILBERT MEASUREMENT RESULTS: Intervals: Rate: 78 RI: 148 QRSD: 80 QT: 388 QTc: 442 [place]: P: 66 RI: 148 QRS: 26 T: 21 INTERPRETIVE STATEMENTS: Normal sinus rhythm Normal ECG Compared to ECG 07/04/2019 08:04:44 No significant changes Electronically Signed On 07-06-19 08:55:32 ADMISSIONS SUPERVISOR by Saul Gray
== END 2019-07-04 10:39 | disposition home or self-care (01) ==
LOC: ER 07:49
DX: R07.9 Chest pain, unspecified (principal); F17.210 Nicotine dependence, cigarettes, uncomplicated
CPT/HCPCS: 36415; 71045; 80048; 80076; 83690; 83880; 84484; 85025; 93005; 99285

== ENCOUNTER 2023-01-07 06:43 | Emergency (ER) | payer BC, OTHER, SELFPAY ==
[2023-01-07 07:21] LABS: Specific Gravity 1.015 (1.005-1.030); Urine Bacteria <20 /HPF (<20); Urine Bilirubin NEGATIVE (Negative); Urine Blood 1+ (Negative); Urine Clarity Turbid (Clear); Urine Color Colorless (Yellow); Urine Glucose NEGATIVE (Negative); Urine Mucus Slight /HPF (None Seen); Urine Protein NEGATIVE (Negative); Urine RBC <5 /HPF (None Seen); Urine Urobilinogen Normal (Normal); Urine pH 5.5 (5.0-7.0)
[2023-01-07 07:30] LABS: Absolute Lymphocytes (CBC) 1.9 K/uL (0.7-4.9); Hematocrit 34.7 % (36.0-45.0); Lymphocytes % 43.1 % (15.3-44.8); MCV 84.3 fL (80-100); MPV 7.4 fL (7.6-11.3); Platelets 307 thou/uL (152-406); RBC Red Blood Cell Count 4.12 M/uL (3.86-4.86)
[2023-01-07 07:50] LABS: Albumin 3.5 g/dL (3.4-5.0); Bilirubin Total 0.3 mg/dL (0.2-1.0)
--- NOTE | 2023-01-07 08:47 | RAD REPORT ---
EXAM DESCRIPTION: CT - Abdomen Pelvis W Contrast - 01/07/2023 8:24 am CLINICAL HISTORY: ABD PAIN COMPARISON: [place] Protocol dated 01/18/2018 TECHNIQUE: Thin cut axial CT imaging of the abdomen and pelvis was performed following intravenous a dministration of 100 mL Isovue 300. Multiplanar reformats were generated and reviewed. All CT scans are performed using dose optimization technique as appropriate and may include automated exposure control or mA/KV adjustment according to patient size. FINDINGS: No suspicious findings in the lung bases. The liver, spleen, and pancreas show no suspicious findings. Gallbladder and biliary tree are also wi thout suspicious finding. Symmetric renal function is seen with no hydronephrosis or suspicious renal mass. No dilated bowel loops or bowel wall thickening. Appendix is unremarkable. No free air, free fluid or inflammatory stranding. No hernia, mass or bulky lymphadenopathy. The urinary bladder is without sig nificant finding. No suspicious bony findings. IMPRESSION: No acute intra-abdominal process. Appendix is unremarkable.
--- NOTE | 2023-01-07 09:09 | EDPHYS ---
Physician Documentation [facility] Name: Kelsie Ulrich Age: 52 yrs Sex: Female : 1970 Arrival Date: 01/07/2023 Time: 06:43 Bed 14 Private MD: ED Physician Talat Beth HPI: 01/07 07:18 This 52 yrs old Black Female presents to ER via Ambulatory with complaints of Abdominal rn Pain. 07:18 The patient presents with abdominal pain in the lower abdomen. Onset: The rn symptoms/episode began/occurred 3 day(s) ago. The symptoms do not radiate. Associated signs and symptoms: Pertinent positives: diarrhea, nausea, Pertinent negatives: blood in stools, dysuria, fever, shortness of breath, vomiting. The symptoms are described as achy, crampy. Modifying factors: The symptoms are alleviated by nothing, the symptoms are aggravated by touching the area. Severity of pain: At its worst the pain was mild in the emergency department the pain is unchanged. The patient has not experienced similar symptoms in the past. The patient has not recently seen a physician. Historical: - Allergies: 06:57 No Known Allergies; as6 - PMHx: 06:57 Hypertension; seasonal allergies; as6 - PSHx: 06:57 Ligation of fallopian tube; as6 - Immunization history:: Client reports receiving the 2nd dose of the Covid vaccine. - Social history:: Smoking status: Patient reports the use of cigarette tobacco products, denies chronic smoking, but will smoke occasionally. - Family history:: not pertinent. - Hospitalizations: : No recent hospitalization is reported. ROS: 07:19 Constitutional: Negative for fever, chills, and weight loss, Cardiovascular: Negative rn for chest pain, palpitations, and edema, Respiratory: Negative for shortness of breath, cough, wheezing, and pleuritic chest pain, Abdomen/GI: + lower abd pain Back: + low back pain : Negative for injury, bleeding, discharge, and swelling, MS/Extremity: Negative for injury and deformity, Skin: Negative for injury, rash, and discoloration, Neuro: Negative for headache, weakness, numbness, tingling, and seizure. Exam: 07:19 Constitutional: This is a well developed, well nourished patient who is awake, alert, rn and in no acute distress. Cardiovascular: Regular rate and rhythm. No pulse deficits. Respiratory: No increased work of breathing, no retractions or nasal flaring. Abdomen/GI: soft, + suprapubic tenderness, no rebound, no RUQ tenderness, no RLQ tenderness Back: No spinal tenderness. Skin: Warm, dry MS/ Extremity: Pulses equal, no cyanosis. Neuro: Awake and alert, GCS 15 Vital Signs: 06:56 Weight 90.72 kg; Height 5 ft. 3 in. ; Pain 6/10; as6 07:10 BP 151 / 84; Pulse 70; Resp 17; Temp 98.1; Pulse Ox 99% on R/A; rs5 08:00 BP 131 / 73; Pulse 67; Resp 17; Pulse Ox 99% on R/A; rs5 09:05 BP 131 / 73; Pulse 72; Resp 18; Pulse Ox 100% on R/A; rs5 06:56 Body Mass Index 35.43 (90.72 kg, 160.02 cm) as6 06:56 Pain Scale: Adult as6 MDM: 07:00 Patient medically screened. rn 09:07 Differential diagnosis: appendicitis, bowel obstruction, diverticulitis, gastritis, rn non-specific abd pain, Pyelonephritis, Ureterolithiasis, urinary tract infection. Data reviewed: vital signs, nurses notes, lab test result(s), radiologic studies, CT scan, and as a result, I will discharge patient. Counseling: I had a detailed discussion with the patient and/or guardian regarding the historical points, exam findings, and any diagnostic results supporting the discharge/admit diagnosis, lab results, radiology results, the need for outpatient follow up, to return to the emergency department if symptoms worsen or persist or if there are any questions or concerns that arise at home. Response to treatment: the patient's symptoms have mildly improved after treatment, and as a result, I will discharge patient. Special discussion: Based on the patient's Hx, exam, and Dx evaluation, there is no indication for emergent surgery or inpatient Tx. It is understood by the patient/guardian that if the Sx's persist or worsen they need to return immediately for re-evaluation. I discussed with the patient/guardian in detail that at this point there is no indication for admission to the hospital. It is understood, however, that if the symptoms persist or worsen the patient needs to return immediately for re-evaluation. 01/07 07:00 Order name: Urinalysis w/ reflexes; Complete Time: 07:52 rn 01/07 07:11 Order name: CBC with Diff; Complete Time: 07:52 rn 01/07 07:11 Order name: CMP; Complete Time: 07:52 rn 01/07 07:11 Order name: CT Abd/Pelvis - IV Contrast Only; Complete Time: 08:57 rn 01/07 07:11 Order name: IV Saline Lock; Complete Time: 07:24 rn 01/07 07:11 Order name: Labs collected and sent; Complete Time: 07:24 rn Administered Medications: No medications were administered Disposition Summary: 01/07/23 09:08 Discharge Ordered Location: Home rn Problem: new rn Symptoms: have improved rn Condition: Stable rn Diagnosis - Lower abdominal pain, unspecified rn - UTI/ Urinary tract infection, site not specified rn - Hematuria, unspecified rn Followup: rn - With: Private Physician - When: As needed - Reason: Recheck today's complaints, Re-evaluation by your physician Discharge Instructions: - Discharge Summary Sheet rn - Abdominal Pain, Adult rn - Urinary Tract Infection, Adult rn Forms: - Medication Reconciliation Form rn - Thank You Letter rn - Antibiotic creative intern - Prescription Opioid Use rn - Patient Portal Instructions rn - Leadership Thank You Letter rn - Work release form rs5 Prescriptions: - ondansetron 4 mg Oral Tablet,disintegrating - take 1 tablet by ORAL route every 8 hours As needed; 12 tablet; Refills: 0, rn Product Selection Permitted - Cipro 500 mg Oral Tablet - take 1 tablet by ORAL route every 12 hours for 7 days; 14 tablet; Refills: 0, rn Product Selection Permitted - Tramadol 50 mg Oral Tablet - take 1 tablet by ORAL route every 8 hours as needed; 12 tablet; Refills: 0, rn Product Selection Permitted Signatures: Dispatcher [employer] Talat Darling MD MD rn Jm Antony RN RN as6
--- NOTE | 2023-01-07 09:09 | ER ---
Nurse's Notes [facility] Name: Kelsie Ulrich Age: 52 yrs Sex: Female : 1970 Arrival Date: 01/07/2023 Time: 06:43 Bed 14 Private MD: Diagnosis: Lower abdominal pain, unspecified;UTI/ Urinary tract infection, site not specified;Hematuria, unspecified Presentation: 01/07 06:57 Chief complaint: Patient states: lower abdominal pain that started a couple days ago. as6 Coronavirus screen: At this time, the client does not indicate any symptoms associated with coronavirus-19. Ebola Screen: No symptoms or risks identified at this time. Initial Sepsis Screen: Does the patient meet any 2 criteria? No. Patient's initial sepsis screen is negative. Does the patient have a suspected source of infection? No. Patient's initial sepsis screen is negative. Risk Assessment: Do you want to hurt yourself or someone else? Patient reports no desire to harm self or others. Onset of symptoms was December 30, 2022. 06:57 Acuity: DANG 3 as6 06:57 Method Of Arrival: Ambulatory as6 Historical: - Allergies: 06:57 No Known Allergies; as6 - PMHx: 06:57 Hypertension; seasonal allergies; as6 - PSHx: 06:57 Ligation of fallopian tube; as6 - Immunization history:: Client reports receiving the 2nd dose of the Covid vaccine. - Social history:: Smoking status: Patient reports the use of cigarette tobacco products, denies chronic smoking, but will smoke occasionally. - Family history:: not pertinent. - Hospitalizations: : No recent hospitalization is reported. Screenin:07 [facility] ED Fall Risk Assessment (Adult) History of falling in the last 3 months, rs5 including since admission No falls in past 3 months (0 pts) Confusion or Disorientation No (0 pts) Intoxicated or Sedated No (0 pts) Impaired Gait No (0 pts) Mobility Assist Device Used No (0 pt) Altered Elimination No (0 pt) Score/Fall Risk Level 0 - 2 = Low Risk Oriented to surroundings, Maintained a safe environment. 07:07 Abuse screen: Denies threats or abuse. Nutritional screening: No deficits noted. rs5 Tuberculosis screening: No symptoms or risk factors identified. Assessment: 07:07 General: Appears in no apparent distress. comfortable, Behavior is calm, cooperative. rs5 07:07 Pain: Complains of pain in abdomen, RLQ Pain does not radiate. Pain currently is 6 out rs5 of 10 on a pain scale. Quality of pain is described as throbbing, Pain began 2-3 days ago. Is continuous. Neuro: Level of Consciousness is awake, alert, obeys commands, Oriented to person, place, time, situation. Cardiovascular: Rhythm is regular. Respiratory: Breath sounds are clear bilaterally. Respiratory:. GI: Abdomen is round non-distended, Bowel sounds present X 4 quads. Abd is soft and non tender X 4 quads. Reports lower abdominal pain, diarrhea, Patient currently denies nausea, vomiting. : No signs and/or symptoms were reported regarding the genitourinary system. EENT: No signs and/or symptoms were reported regarding the EENT system. Derm: Skin is dry, Skin is normal, Skin temperature is warm. Musculoskeletal: Range of motion: intact in all extremities. 08:03 Reassessment: Patient and/or family updated on plan of care and expected duration. Pain rs5 level reassessed. Patient is alert, oriented x 3, equal unlabored respirations, skin warm/dry/pink. Pain: Complains of pain in abdomen, RLQ Pain does not radiate. Pain currently is 6 out of 10 on a pain scale. Quality of pain is described as throbbing, Pain began 2-3 days ago. Pt states, "my pain is not that bad" Is continuous. 09:05 Reassessment: No changes from previously documented assessment. rs5 Vital Signs: 06:56 Weight 90.72 kg; Height 5 ft. 3 in. ; Pain 6/10; as6 07:10 BP 151 / 84; Pulse 70; Resp 17; Temp 98.1; Pulse Ox 99% on R/A; rs5 08:00 BP 131 / 73; Pulse 67; Resp 17; Pulse Ox 99% on R/A; rs5 09:05 BP 131 / 73; Pulse 72; Resp 18; Pulse Ox 100% on R/A; rs5 06:56 Body Mass Index 35.43 (90.72 kg, 160.02 cm) as6 06:56 Pain Scale: Adult as6 ED Course: 06:49 Patient arrived in ED. ag3 06:56 Arm band placed on. as6 06:58 Triage completed. as6 07:00 Tlaat Beth MD is Attending Physician. rn 07:07 Patient has correct armband on for positive identification. Placed in gown. Bed in low rs5 position. Call light in reach. Side rails up X2. 07:24 Inserted saline lock: 20 gauge in left antecubital area, using aseptic technique. Blood rs5 collected. 08:26 CT Abd/Pelvis - IV Contrast Only In Process Unspecified. EDMS 09:20 Zane Franco, RN is Primary Nurse. rs5 09:26 No provider procedures requiring assistance completed. IV discontinued, intact, rs5 bleeding controlled, No redness/swelling at site. Pressure dressing applied. Administered Medications: No medications were administered Medication: 09:27 VIS not applicable for this client. rs5 Outcome: 09:08 Discharge ordered by . rn 09:26 Discharged to home ambulatory. rs5 09:26 Condition: stable 09:26 Discharge instructions given to patient, Instructed on discharge instructions, follow up and referral plans. medication usage, Demonstrated understanding of instructions, follow-up care, medications, Prescriptions given X 3. 09:33 Patient left the ED. rs5 Signatures: Dispatcher [employer] EDMS Talat Beth MD MD rn Gomez, Alice ag3 Jm Antony RN RN as6 Zane Franco, FABIAN RN rs5 Corrections: (The following items were deleted from the chart) 08:08 07:07 GI: Bowel sounds present X 4 quads. Abd is soft and non tender X 4 quads. Reports rs5 lower abdominal pain, diarrhea, Patient currently denies nausea, vomiting, rs5 08:14 08:03 Pain: Complains of pain in abdomen, RLQ Pain does not radiate. Pain currently is rs5 6 out of 10 on a pain scale. Quality of pain is described as throbbing, Pain began 2-3 days ago. Is continuous, rs5 09:31 08:03 Pain: Complains of pain in abdomen, RLQ Pain does not radiate. Pain currently is rs5 6 out of 10 on a pain scale. Quality of pain is described as throbbing, Pain began 2-3 days ago. Is continuous, rs5 09:33 09:05 BP 131 / 73; Pulse 12bpm; Resp 18bpm; Pulse Ox 100% RA; rs5 rs5
[2023-01-07 09:48] VITALS: TEMP 98.1
[2023-01-07 09:54] VITALS: BP 131/73
[2023-01-07 09:59] VITALS: O2SAT 100
== END 2023-01-07 09:33 | disposition home or self-care (01) ==
LOC: ER 06:43
DX: N39.0 Urinary tract infection, site not specified (principal); R31.9 Hematuria, unspecified; I10 Essential (primary) hypertension; F17.210 Nicotine dependence, cigarettes, uncomplicated
CPT/HCPCS: 85025; 81001; 36415; 80053; 74177; 99284; Q9967